=== PATIENT | female | born 1965 | race Two or more races ===

== ENCOUNTER 2020-01-11 13:21 | Day surgery (SDC) | payer SELFPAY ==
--- NOTE | 2020-01-10 18:35 | HP.PCM_ITS ---
History and Physical Date of Admission: 01/11/[address] 1965 ? ? REFERRING PHYSICIAN: Titi Camp MD ? CHIEF COMPLAINT: Consult ? HPI: The patient is a 54 year old female presents with rectal cancer. Found to have rectal cancer by colonoscopy for rectal bleeding in October 2019 She will require neoadjuvant treatment with radiation and chemotherapy. She is referred for ease of IV access with placement of portacath. She denies previous deep venous thromboses. Denies previous clavicular and/or rib fractures. Denies previous placement of central venous catheters. ? ? PAST MEDICAL HISTORY ? Rectal cancer (HCC) ? ? PAST SURGICAL HISTORY ? COLONOSCOPY ? 11/10/2019 ? HYSTERECTOMY ? 2013 ? vaginal ? OOPHORECTOMY, PART/TOTAL UNILAT/BILAT Right ? ? ? Current Outpatient Medications ? calcium carbonate (CALCIUM 300 ORAL) Take by mouth once daily. calcium with magnesium ? vitamins no.2 ( VITAMIN NO.2 ORAL) Take 1 tablet by mouth once daily. ? ascorbic acid, vitamin C, (VITAMIN C) 500 mg tablet Take 500 mg by mouth once daily. ? Vitamin E, dl, acetate, (VITAMIN E) 400 unit capsule Take 400 Units by mouth once daily. ? ? ALLERGIES: Patient has no known allergies. ? PERSONAL HISTORY: Tobacco Use ? Smoking status: Never Smoker ? Smokeless tobacco: Never Used Substance Use Topics ? Alcohol use: Never ? ? Frequency: Never ? Drug use: Never : FAMILY HISTORY ? Hypertension Mother ? ? Cancer Father ? ? prostate ? No Known Problems Brother ? ? Heart disease Maternal Grandmother ? ? Cancer Maternal Grandfather ? ? Heart disease Paternal Grandmother ? ? No Known Problems Sister ? ? No Known Problems Brother ? ? ? Nursing Notes: Lizz Ba LPN 01/10/2020 2:53 PM Signed REVIEW OF SYSTEMS: General: The patient denies fatigue, has had weight loss, denies weight gain, denies feeling hot, and denies feelings of cold. Eyes: The patient denies glaucoma, denies eye injury/surgery, wears glasses or contacts. Ear/Nose/Throat: The patient denies allergies, denies hayfever, denies ear infections, and denies bloody noses. Cardiovascular: The patient denies chest pain, denies heart disease, denies high blood pressure,denies cardiac stent, denies prior heart attack, denies irregular heart beat, denies high cholesterol, denies poor circulation, denies heart failure, other cardiac issues, denies claudication, denies cold feet, denies peripheral arterial stent. Respiratory: The patient denies tuberculosis, denies pneumonia, denies frequent cough, denies pulmonary embolism, denies shortness of breath, and denies coughing up blood. Gastrointestinal: The patient denies difficulty swallowing, denies acid reflux, denies ulcers, denies vomiting, denies jaundice/hepatitis, denies gallbladder problems, denies black or tarry stools, NOTES hemorrhoids, NOTES bleeding from rectum, denies diverticulitis, NOTES constipation, denies diarrhea, denies loss of stool control, and denies hernias. Kidney/Bladder: slight stress urinary incontinence, denies kidney stones, denies urine infections, and denies bloody urine. Skin: The patient denies a history of skin cancer, denies bleeding/changing moles, and denies a history of skin rash. Neurologic: The patient denies a history of epilepsy/convulsions, denies headaches, denies head/spinal injuries, and denies stroke/TIA. Psychiatric: The patient denies psychiatric medications, denies depression, and denies voices, denies substance abuse. Endocrine: The patient denies thyroid disorders, denies diabetes, and denies hormonal problems. Hematologic: The patient denies a history of bruising, denies bleeding, and denies anemia, denies blood clots. Infections: The patient denies a history of measles and mumps, denies rheumatic fever, and denies sexually transmitted diseases. Musculoskeletal: The patient denies back pain/injury, denies back problems, denies sciatica, denies knee/foot trouble, denies arthritis, or denies gout. ? PHYSICAL EXAMINATION: General: The patient is 54 year old female, well nourished, well hydrated in no acute distress. The patient is oriented to time, place, and person. VITALS: Blood pressure 154/96, pulse 82, temperature 36.6 ?C (97.8 ?F), temperature source Temporal Artery, height 158 cm (5' 2.21), weight 83 kg (183 lb), SpO2 99 %. Body mass index is 33.25 kg/m?. Head ? Normocephalic. EOM intact with sclera clear and no icterus noted. Mouth with mucus membranes moist. Neck - supple with no jugular venous distention noted. Trachea is midline. Lungs ? clear to auscultation. Normal breath sounds. No rales/rhonchi/wheezing noted. No labored breathing noted, such as retractions. No cough heard. Heart ? normal S1 and S2 auscultated. No rubs/clicks/murmurs noted. Regular rate. Abdomen ? soft and benign. Normal bowel sounds. No abdominal bruits noted. Extremities ? no calf tenderness noted. No pitting edema noted. Skin ? normal skin integrity. Neurological ? gait normal, no focal deficits noted. Psych ? calm and appropriate ? IMPRESSION: rectal cancer, requires IV access ? PLAN: I have discussed the above with the patient and her who is present with her. I have offered placement of portacath I have explained the procedure to the patient. I have counseled the patient as to the risks of the procedure, including but not limited to: infection, bleeding, injury to any blood vessels/nerves, scar tissue, injury to any the lungs such as hemothorax and/or pneumothorax, thromboses of blood vessels, non functioning of port, inability to place portacath, wound infections, complications of anesthesia, etc. ? the patient understands. The patient wishes to proceed. Had initially been intended to schedule at [place], but due to nurse staffing issues, scheduled at [facility] instead. ? I have answered all questions to the patient?s satisfaction and the patient has no further questions. ? . Diagnoses: (Z45.2) Exhausted vascular access (primary encounter diagnosis) (C20) Rectal cancer (HCC) Return to Clinic: The patient is instructed to follow-up with me after the procedure as per needed.
[2020-01-11 14:00] VITALS: BP 163/78; PULSE 75; RESP 16; TEMP 36.8; O2SAT 100; BMI 33.5
[2020-01-11] MEDS: Lactated Ringers 1,000 ML 75 ML IV (14:00)
[2020-01-11] MEDS: Cefazolin 2 GM in 0.9% Normal Saline 100 ML IV (15:33)
--- NOTE | 2020-01-11 15:33 | DCINST_ITS ---
Discharge Diet: No Restrictions Discharge Activity: Return to Normal Activity, May not drive while taking narcotic pain medications. Call your doctor if your incision/area has: Continuous Slow Oozing, Foul Smelling Discharge Call your doctor if you observe: Fever of 101 or Higher Additional Dressing/Incision Instructions:: Leave dressings in place. May get wet in shower. do not soak - no tub baths/swimming Allergies/Adverse Reactions: Allergies No Known Allergies Allergy (Verified 01/11/20 13:58) Medications to take at Discharge Hydrocodone Bitart/Apap 5-325 [Mullen 5MG-325MG] 1 tablet PO Q8H PRN PRN 2 Days #6 tablet 01/11/20 The following prescriptions were given: Hydrocodone Bitart/Apap 5-325 [Mullen 5MG-325MG] 1 tablet PO Q8H PRN PRN 2 Days #6 tablet PRN Reason: Pain Transmission Status: Sent to [facility] Primary Care Physician: JOAN BOJORQUEZ [Other] Test Results: Test results from this visit will be discussed in further detail at your follow- up appointment, if applicable. Please Follow Up With: Katja Flores MD When: to be seen as per needed, can call if any problems
--- NOTE | 2020-01-11 15:34 | PCM.OPRPT ---
Report of Operation Date of Procedure: 01/11/20 Pre-Operative Diagnosis: rectal cancer, need for IV access Post-Operative Diagnosis: same Surgery/Procedure Performed:: placement of permanent indwelling tunnelled catheter in the left subclavian vein with subcutaneous port Description of Surgical Findings:: normal left subclavian anatomy to SVC Type of Anesthesia:: Local MAC Anesthesiologist: Phuc York Specimen's removed: none Estimated Blood Loss (mL): < 10 ml Fluids Replaced: 660 ml RL Description of Procedure: After informed consent was given, the patient was brought to the Operating Room. Appropriate time out protocol was followed. She was then placed in the supine position. She was then given IV conscious sedation for anesthesia. The patient?s upper chest and neck were then prepped with a surgical skin preparation and sterile surgical drapes were placed. After proper landmarks were ascertained, the skin at the upper left chest area was then infiltrated with 1% xylocaine with epinephrine. A needle trocar was then inserted into the left subclavian vein and there was good aspiration of venous blood. A wire was then threaded into the needle trocar and this was visualized under fluoroscopy to ensure that the wire was in the left subclavian vein. Once this was done, then the needle trocar was removed. A small skin osvaldo was made with an 11 blade knife at the wire entrance site. The dilator with the introducer sheath attached was then placed over the wire into the left subclavian vein via the Seldinger technique and this was visualized under fluoroscopy. The dilator and sheath were in proper position as visualized by fluoroscopy. The wire and dilator were then removed. The catheter was then threaded into the introducer sheath and was positioned with its tip at the junction of the superior vena cava and the right atrium as visualized under fluoroscopy. The catheter was flushed with a heparin saline mixture prior to placement. A subcutaneous pocket was then created caudad to the catheter insertion site. A transverse skin incision was made after the skin and subcutaneous tissues were infiltrated with local anesthetic. Blunt dissection was then used to create a space large enough for placement of the subcutaneous port. Hemostasis was carefully controlled with electrocautery. The port was sutured to the subcutaneous fascia using vicryl suture at three sites. The catheter was then tunneled into the subcutaneous pocket. The excess catheter was transected. The catheter was then attached to the subcutaneous port using wood carving machine operator?s guidelines. The port was then placed in the subcutaneous pocket and the sutures were ligated. The subdermal incisional sites were reapproximated with interrupted vicryl suture. The skin was reapproximated with monocryl suture in a subcuticular fashion. Cavilon and steristrips were used for reinforcement of the skin closure and a sterile opsite dressing was applied. The patient was brought to the Recovery Room in stable condition. - Complications none noted - Admit VTE Documentation VTE Present on Admission: Yes VTE Mechan Device Prophylaxis: SCD's
[2020-01-11 16:30] VITALS: BP 146/83; BP 163/78; PULSE 97; RESP 18; TEMP 37.2; O2SAT 100
--- NOTE | 2020-01-11 16:31 | RAD_ITS ---
STUDY: X-RAY CHEST REASON FOR EXAM: Female, 54 years old. VASCULAR PORT PLACEMENT. TECHNIQUE: Single AP portable view of the chest. COMPARISON: None. FINDINGS: Port on the left extends to the lower superior vena cava. The lungs are clear and expanded. There is no demonstrated pleural abnormality. Normal size heart. Normal mediastinum and elisa. Normal visualized pulmonary arteries. There is atherosclerotic tortuosity of the aortic arch and descending thoracic aorta. There are diffuse degenerative changes of the visualized thoracic spine. Normal visualized ribs, clavicles, and shoulders. There is no demonstrated abnormality of the visualized soft tissue structures of the upper abdomen. RAD/CXR for Line Placement IMPRESSION: Port placement. No pneumothorax. Electronically Signed: Samuel Garcia MD at 17:38 EST , Service support ,
[2020-01-11 16:35] VITALS: BP 147/83; BP 163/78; PULSE 90; RESP 18; O2SAT 100
[2020-01-11 16:40] VITALS: BP 139/79; BP 163/78; PULSE 90; RESP 18; O2SAT 100
[2020-01-11 16:46] VITALS: BP 139/88; BP 163/78; PULSE 91; RESP 18; TEMP 37.1; O2SAT 100
[2020-01-11 17:15] VITALS: BP 163/78
== END 2020-01-11 17:40 | disposition home or self-care (01) ==
LOC: SDC 13:28 → AC 13:30
PROVIDERS: Referring Provider Surgery; Visit Provider Surgery
PROC: (CPT 36561; principal; 2020-01-11 15:00)
DX: Z45.2 Encounter for adjustment and management of vascular access device (principal); C20 Malignant neoplasm of rectum
CPT/HCPCS: 00532; 36561; 71045; 77001; J7120; C1788